=== PATIENT | female | born 1995 ===

== ENCOUNTER 2018-11-02 23:35 | Observation (INO) | payer OTHER ==
[~2018-11-02] VITALS: Ht 162 cm; Wt 97.0 kg
[2018-11-03] MEDS ORDERED: LEVOXYL0.025 MG PO ×2 (00:04→00:30)
[2018-11-03 00:46] LABS: BASO # 0.1 (0.0-0.2); BASO % 0.4 % (0.0-2.0); EOS # 1.5 (0.0-0.7); EOS % 12.8 % (0-4.0); GRAN # 6.3 (1.4-6.5); GRAN % 54.9 % (42.2-75.2); HEMATOCRIT 44.6 % (37.0-47.0); HEMOGLOBIN 14.8 g/dl (12.5-16.0); LYMPH % 25.6 % (20.0-51.0); MEAN CELL VOLUME 85 fl (80.0-100.0); MEAN CORPUSCULAR HEMOGLOBIN 28 pg (27.0-31.0); MEAN CORPUSCULAR HGB CONC 33 g/dl (33.0-37.0); MEAN PLATELET VOLUME 10.9 fl (7.4-10.4); MONO # 0.7 (0.1-0.6); MONO % 5.8 % (1.7-9.3); PLATELET COUNT 244 K/mm3 (130-400); RED BLOOD COUNT 5.25 M/mm3 (4.10-5.30)
[2018-11-03 00:54] LABS: ALBUMIN 4.3 gm/dL (3.5-5.0); BILIRUBIN,TOTAL 0.2 mg/dL (0.0-1.0); CALCIUM 9.4 mg/dL (8.4-10.2); CREATININE, serum 0.82 (0.52-1.25); POTASSIUM 4.1 mmol/L (3.4-5.0); TOTAL PROTEIN 8.2 gm/dL (6.4-8.2)
[2018-11-03 01:24] LABS: TSH w REFLEX 3.34 uIU/mL (0.465-4.680)
[2018-11-03] MEDS ORDERED: PREDNISONE20 MG PO (01:38)
[2018-11-03] MEDS ORDERED: SINGULAIR 110 MG/TAB PO (01:38)
[2018-11-03] MEDS ORDERED: DOXYCYCLINE 10100 MG PO (03:16)
[2018-11-03 08:31] VITALS: BP 127/61; PULSE 134; TEMP 98
--- NOTE | 2018-11-03 09:04 | NUR ---
Pt arrived to room 318 at this time. She is A/O x3. Her breathing is even and unlabored on 2L O2 via NC. Pt denies any pain. Occasional chest tightness with breathing as well as cough. Pt requesting food and a nap. POC discussed with patient via translate. at bedside attempting to translate, upper sorbian is fairly poor as well. Continuous pulse ox to be applied. Pt denies needs, call light within reach.
[2018-11-03 11:56] VITALS: BP 120/50; PULSE 120; TEMP 97.9
--- NOTE | 2018-11-03 15:51 | NUR ---
SW attended clinical rounds. The phone dry wall installations mechanic translated. SW then followed up with the patient and her using the phone dry wall installations mechanic. The patient's translated some. The patient recently moved to [place] to live with her , Dasia, and their child. Her is a student at [employer]. The patient reports independence with ADLs and does not use any DME. She does not have a PCP, but she was interested in being set up with a female PCP. SW discussed PCP's in the [place] area. The patient was agreeable to being set up with Dr. Nivia Michaud at the [facility]. SW informed the patient's PA, Angelina. The patient and her did have questions about insurance and finances. PATRICK consulted Financial Counselor, Susan. Susan plans to meet with the patient and her tomorrow, 11/04. The patient plans to return home with her family upon discharge. No other identified needs at this time, but SW to continue to follow.
[2018-11-03 16:03] VITALS: BP 128/70; PULSE 128; TEMP 97.9
[2018-11-03 19:23] VITALS: BP 127/67; PULSE 80; PULSE 85; TEMP 98.6
--- NOTE | 2018-11-03 19:26 | NUR ---
Pt rested well, was able to get some sleep. Breathing is even and unlabored on 1L O2 via NC, pt still tachypneic. Denies any pain. Pt had good appetite. POC discussed with patient. IVF infusing without complications. Call light within reach.
--- NOTE | 2018-11-03 22:07 | NUR ---
PT AMBULATES IN ROOM WITH NO DIFFICULTIES, DENIES PAIN OR DISCOMFORT, NO NEEDS AT THIS TIME, CALL LIGHT WITHIN REACH. RESP EVEN AND UNLABORED.
[2018-11-04 00:24] VITALS: BP 120/77; PULSE 83; TEMP 98.2
[2018-11-04 03:14] VITALS: BP 122/64; PULSE 102; TEMP 98.2
--- NOTE | 2018-11-04 05:58 | NUR ---
UNEVENTFUL NIGHT, PT SLEPT/RESTED WELL WITH NO S/S OF PAIN OR DISCOMFORT NOTED. RESP EVEN AND UNLABORED, PT DOES SOFTLY SNORE. SPOUSE IN ROOM WITH PT BY BED SIDE. EARLIER SPOUSE WANTED TO KNOW IF PT WAS BEING DISCHARGED AT 0800. ADVISED NO, THAT THE DOCTOR DOES NOT GET HERE UNTIL 0900 AND IT MAY BE LATER THAT HE SEES HER. CALL LIGHT WITHIN.
[2018-11-04 07:03] LABS: BASO % 0.4 % (0.0-2.0); EOS # 0.3 (0.0-0.7); EOS % 2.8 % (0-4.0); GRAN % 65.4 % (42.2-75.2); HEMATOCRIT 38.3 % (37.0-47.0); LYMPH # 2.8 (1.2-3.4); LYMPH % 25.9 % (20.0-51.0); MEAN CELL VOLUME 89 fl (80.0-100.0); MEAN CORPUSCULAR HGB CONC 32 g/dl (33.0-37.0); MEAN PLATELET VOLUME 11.1 fl (7.4-10.4); MONO # 0.5 (0.1-0.6); MONO % 4.7 % (1.7-9.3); PLATELET COUNT 218 K/mm3 (130-400); RED BLOOD COUNT 4.32 M/mm3 (4.10-5.30); REDCELL DISTRIBUTION WIDTH-CV 13.7 % (11.5-14.5)
[2018-11-04 07:13] LABS: HEMOGLOBIN 12.3 g/dl (12.5-16.0); MEAN CORPUSCULAR HEMOGLOBIN 28 pg (27.0-31.0)
[2018-11-04 07:16] LABS: CALCIUM 8.3 mg/dL (8.4-10.2); CREATININE, serum 0.64 (0.52-1.25); POTASSIUM 3.9 mmol/L (3.4-5.0)
--- NOTE | 2018-11-04 08:00 | NUR ---
Pt alert and oriented. Pt's spouse at bedside and translates for pt and if not available pt uses [employer] arnulfo for translation. Pt denies SOB or pain this am. Pt eating breakfast now and anxious to go home. Pt and spouse report seeing a couple bugs in their room and offered to move them to another room but pt denies need and have not seen any since. No bugs seen by this nurse this am. Pt IV intact and fluids running no redness or infiltration. Pt on nasal cannula for oxgyen supp and on cont. oxygen sat and running 97% this am.
[2018-11-04] MEDS ORDERED: PREDNISONE20 MG PO (09:11)
[2018-11-04] MEDS ORDERED: ROBITUSSIN100 MG/5 M PO (09:14)
[2018-11-04] MEDS ORDERED: PROAIR HFA0.09 MG/AC IH (09:14)
[2018-11-04] MEDS ORDERED: ZITHROMAX 250M250 MG PO (09:19)
--- NOTE | 2018-11-04 09:55 | NUR ---
Pt taken off supplemental oxygen and saturations staying around 95% on room air. Pt sitting up in chair with spouse at bedside.
--- NOTE | 2018-11-04 10:04 | NUR ---
The patient is to discharge back home with her today, 11/04. The patient was set up with Dr. Nivia Michaud for primary care. No additional needs at this time.
--- NOTE | 2018-11-04 10:30 | NUR ---
Pt alert and oriented. Pt given discharge instructions. Pt saturation 94% on room air. Pt denies SOB at rest. Pt denies pain at this time. Pt and spouse given education on discharge medications and instruction for follow up and S/sx of when to go to ER. Pt denies questions. Pt's spouse given note for pt/spouse hospital stay. Pt IV discontinued and pressure dressing applied. Pt escorted out by aide via wheelchair and has all belongings.
--- NOTE | 2018-11-04 23:32 | NUR ---
Patient called in to verify dosing on azithromycin and robutissin. Clarified medication directions with patient. Denies any other questions at this time.
== END 2018-11-04 10:40 | disposition home or self-care (01) ==
LOC: COL.ER 23:35 → MEDICAL 11-03 06:48
PROVIDERS: Nurse Practitioner; Physician Assistant; ADMIT Family Medicine
DX: J18.1 Lobar pneumonia, unspecified organism (principal); E03.9 Hypothyroidism, unspecified; Z79.52 Long term (current) use of systemic steroids
CPT/HCPCS: 99239; A4216; G0378; J0696; J1650; J3475; J7030; J7512

== ENCOUNTER 2019-01-26 21:37 | Emergency (ER) | payer OTHER ==
[~2019-01-26] VITALS: Ht 160 cm; Wt 97.3 kg
[~2019-01-26 21:37] MED LIST: DOXYCYCLINE 10100 MG PO; LEVOXYL0.025 MG PO; PREDNISONE20 MG PO; PROAIR HFA0.09 MG/AC IH; ROBITUSSIN100 MG/5 M PO; SINGULAIR 110 MG/TAB PO; ZITHROMAX 250M250 MG PO
[2019-01-26 21:46] VITALS: BP 104/61; TEMP 97.6
[2019-01-26 22:22] LABS: BASO % 0.3 % (0.0-2.0); EOS # 0.2 (0.0-0.7); EOS % 2.1 % (0-4.0); GRAN # 5.9 (1.4-6.5); GRAN % 55.4 % (42.2-75.2); HEMATOCRIT 39.2 % (37.0-47.0); HEMOGLOBIN 12.8 g/dl (12.5-16.0); LYMPH # 3.9 (1.2-3.4); LYMPH % 36.2 % (20.0-51.0); MEAN CELL VOLUME 85 fl (80.0-100.0); MEAN CORPUSCULAR HEMOGLOBIN 28 pg (27.0-31.0); MEAN CORPUSCULAR HGB CONC 33 g/dl (33.0-37.0); MEAN PLATELET VOLUME 10.7 fl (7.4-10.4); MONO # 0.6 (0.1-0.6); MONO % 5.4 % (1.7-9.3); PLATELET COUNT 236 K/mm3 (130-400); RED BLOOD COUNT 4.59 M/mm3 (4.10-5.30); REDCELL DISTRIBUTION WIDTH-CV 13.5 % (11.5-14.5)
[2019-01-26 22:31] LABS: CALCIUM 8.7 mg/dL (8.4-10.2); CREATININE, serum 0.71 (0.52-1.25); POTASSIUM 3.1 mmol/L (3.4-5.0)
[2019-01-26 23:10] VITALS: PULSE 86
== END 2019-01-26 23:10 | disposition home or self-care (01) ==
LOC: COL.ER 21:37
PROVIDERS: Physician Assistant
DX: R42 Dizziness and giddiness (principal); R11.0 Nausea

== ENCOUNTER 2019-03-01 00:02 | Emergency (ER) | payer OTHER ==
[~2019-03-01] VITALS: Ht 160 cm; Wt 94.0 kg
[2019-03-01 00:06] VITALS: BP 127/75; PULSE 120; TEMP 98.1
[2019-03-01] MEDS ORDERED: DOXYCYCLINE 10100 MG PO (19:10)
[2019-03-01] MEDS ORDERED: PREDNISONE20 MG PO (19:10)
== END 2019-03-01 02:03 | disposition left against medical advice (07) ==
LOC: COL.ER 00:02
DX: R09.89 Other specified symptoms and signs involving the circulatory and respiratory systems (principal)

== ENCOUNTER 2019-03-01 17:13 | Emergency (ER) | payer OTHER ==
[~2019-03-01] VITALS: Ht 160 cm; Wt 95.5 kg
[2019-03-01 17:25] VITALS: BP 127/68; TEMP 98.3
[2019-03-01 18:06] LABS: BASO % 0.4 % (0.0-2.0); EOS # 1.1 (0.0-0.7); EOS % 10.1 % (0-4.0); GRAN # 6.4 (1.4-6.5); GRAN % 60.5 % (42.2-75.2); HEMATOCRIT 43.1 % (37.0-47.0); HEMOGLOBIN 14.3 g/dl (12.5-16.0); LYMPH # 2.3 (1.2-3.4); LYMPH % 22.1 % (20.0-51.0); MEAN CELL VOLUME 85 fl (80.0-100.0); MEAN CORPUSCULAR HEMOGLOBIN 28 pg (27.0-31.0); MEAN CORPUSCULAR HGB CONC 33 g/dl (33.0-37.0); MEAN PLATELET VOLUME 10.8 fl (7.4-10.4); MONO # 0.7 (0.1-0.6); MONO % 6.5 % (1.7-9.3); PLATELET COUNT 262 K/mm3 (130-400); RED BLOOD COUNT 5.07 M/mm3 (4.10-5.30); REDCELL DISTRIBUTION WIDTH-CV 13.5 % (11.5-14.5)
[2019-03-01 18:18] LABS: ALBUMIN 4.5 gm/dL (3.5-5.0); BILIRUBIN,TOTAL 0.3 mg/dL (0.0-1.0); CALCIUM 9.2 mg/dL (8.4-10.2); CREATININE, serum 0.56 (0.52-1.25); POTASSIUM 3.8 mmol/L (3.4-5.0); TOTAL PROTEIN 8.4 gm/dL (6.4-8.2)
[2019-03-01] MEDS ORDERED: DOXYCYCLINE 10100 MG PO (19:10)
[2019-03-01] MEDS ORDERED: PREDNISONE20 MG PO (19:10)
[2019-03-01 19:43] VITALS: PULSE 101
== END 2019-03-01 19:44 | disposition home or self-care (01) ==
LOC: COL.ER 17:13
PROVIDERS: Emergency Medicine
DX: J45.909 Unspecified asthma, uncomplicated (principal); J20.9 Acute bronchitis, unspecified
CPT/HCPCS: J2930; J7030

== ENCOUNTER 2019-05-28 18:50 | Emergency (ER) | payer OTHER ==
[~2019-05-28] VITALS: Ht 160 cm; Wt 94.0 kg
[2019-05-28 19:01] VITALS: BP 117/59; PULSE 84; TEMP 97.1
== END 2019-05-28 20:58 | disposition left against medical advice (07) ==
LOC: COL.ER 18:50
DX: R09.81 Nasal congestion (principal)

== ENCOUNTER 2019-06-18 16:22 | Emergency (ER) | payer OTHER ==
[~2019-06-18] VITALS: Ht 160 cm; Wt 93.0 kg
[2019-06-18 16:34] VITALS: BP 124/70; TEMP 97.4
[2019-06-18] MEDS ORDERED: ZITHROMAX Z PA250 MG PO (19:06)
[2019-06-18] MEDS ORDERED: PREDNISONE20 MG PO (19:07)
[2019-06-18 19:25] VITALS: PULSE 90
== END 2019-06-18 19:25 | disposition home or self-care (01) ==
LOC: COL.ER 16:22
DX: J45.901 Unspecified asthma with (acute) exacerbation (principal); J18.9 Pneumonia, unspecified organism; E03.9 Hypothyroidism, unspecified
CPT/HCPCS: J7512

== ENCOUNTER 2019-09-24 22:27 | Emergency (ER) | payer OTHER ==
[~2019-09-24] VITALS: Ht 160 cm; Wt 94.0 kg
[~2019-09-24 22:27] MED LIST changes: +ZITHROMAX Z PA250 MG PO
[2019-09-24 22:33] VITALS: BP 120/87; TEMP 98.1
[2019-09-25 01:13] VITALS: PULSE 106
== END 2019-09-25 01:13 | disposition home or self-care (01) ==
LOC: COL.ER 22:27
DX: B34.9 Viral infection, unspecified (principal); E07.9 Disorder of thyroid, unspecified; Z87.01 Personal history of pneumonia (recurrent)

== ENCOUNTER 2019-10-31 19:00 | Emergency (ER) | payer OTHER ==
[~2019-10-31] VITALS: Ht 160 cm; Wt 90.0 kg
[2019-10-31 19:16] VITALS: BP 111/82; TEMP 97.8
[2019-10-31 20:06] LABS: BASO % 0.5 % (0.0-2.0); EOS % 11.7 % (0-4.0); GRAN # 4.2 (1.4-6.5); GRAN % 52.3 % (42.2-75.2); HEMATOCRIT 43.2 % (37.0-47.0); HEMOGLOBIN 14.5 g/dl (12.5-16.0); LYMPH # 2.4 (1.2-3.4); LYMPH % 29.8 % (20.0-51.0); MEAN CELL VOLUME 85 fl (80.0-100.0); MEAN CORPUSCULAR HEMOGLOBIN 29 pg (27.0-31.0); MEAN CORPUSCULAR HGB CONC 34 g/dl (33.0-37.0); MEAN PLATELET VOLUME 10.8 fl (7.4-10.4); MONO # 0.5 (0.1-0.6); MONO % 5.5 % (1.7-9.3); PLATELET COUNT 233 K/mm3 (130-400); RED BLOOD COUNT 5.08 M/mm3 (4.10-5.30)
[2019-10-31 20:22] LABS: ALBUMIN 4.1 gm/dL (3.5-5.0); BILIRUBIN,TOTAL 0.4 mg/dL (0.0-1.0); CALCIUM 8.8 mg/dL (8.4-10.2); CREATININE, serum 0.58 (0.52-1.25); POTASSIUM 4.2 mmol/L (3.4-5.0); TOTAL PROTEIN 7.8 gm/dL (6.4-8.2)
[2019-10-31] MEDS ORDERED: PROAIR HFA0.09 MG/AC IH (20:55)
[2019-10-31] MEDS ORDERED: PREDNISONE20 MG PO (20:55)
[2019-10-31 21:29] VITALS: PULSE 99
== END 2019-10-31 21:29 | disposition home or self-care (01) ==
LOC: COL.ER 19:00
PROVIDERS: Emergency Medicine
DX: J45.901 Unspecified asthma with (acute) exacerbation (principal)
CPT/HCPCS: J7512